=== PATIENT | female | born 1955 | race Caucasian/White ===

== ENCOUNTER 2019-01-11 08:40 | Inpatient (IN) | payer MEDICAID, OTHER ==
[~2019-01-11] VITALS: Ht 162.6 cm; Wt 95.3 kg
[2019-01-11 09:44] LABS: Basophils # (auto) 0.1 uL; Basophils % (auto) 0.8 % (0.0-2.0); Eosinophils # (auto) 0.1 uL; Eosinophils % (auto) 0.6 % (0.0-7.0); Hemoglobin 14.3 g/dL (12.2-16.2); Lymphocytes # (auto) 1.1 uL; Lymphocytes % (auto) 11.1 % (10.0-50.0); Mean Corpuscular Hemoglobin 30.6 pg (28.0-32.0); Mean Corpuscular Hgb Conc. 34.9 g/dL (32.0-36.0); Mean Corpuscular Volume 87.5 fL (80.0-100.0); Monocytes # (auto) 0.3 uL; Monocytes % (auto) 2.9 % (0.0-12.0); Neutrophils # (auto) 8.6 uL; Neutrophils % (auto) 84.6 % (37.0-80.0); Nucleated Red Blood Cells % 0.1 %; Platelet Count (auto) 246 10^3/uL (140-450); Red Blood Cells 4.68 10^6/uL (4.0-5.20); Red Cell Distribution Width 13.1 % (11.8-14.3); White Blood Cell 10.2 10^3/uL (4.4-10.8)
[2019-01-11] MEDS ORDERED: ONDANSETRON HCL 4 MG/2 ML VIAL IV ONE ×2 (09:45→14:00)
[2019-01-11] MEDS ORDERED: KETOROLAC TROMETH 30 MG/ML 1ML VIAL IV ONE ×2 (09:45→13:30)
[2019-01-11 09:56] LABS: Albumin 4.2 g/dL (3.4-5.0); Calcium 8.8 mg/dL (8.5-10.1); Potassium 3.6 mmol/L (3.5-5.1)
[2019-01-11 09:58] LABS: Bilirubin, Total 0.8 mg/dL (0.2-1.0)
[2019-01-11 10:01] LABS: Urine Bacteria FEW /hpf (None Seen); Urine Blood TRACE /uL (Negative); Urine Hyaline Cast FEW /lpf (0 - 2); Urine Mucus FEW (None Seen); Urine Specific Gravity 1.021 (1.001-1.035); Urine WBC 63 /hpf (0 - 5)
[2019-01-11] MEDS ORDERED: SODIUM CHLORIDE 0.9% 1,000 ML IV ONE (13:30)
[2019-01-11] MEDS ORDERED: HYDROmorphone HCL 2 MG/ML VL IV ONE (14:00)
[2019-01-11] MEDS ORDERED: NITROGLYCERIN 0.4 MG SL TAB SL PRN (14:15)
[2019-01-11] MEDS ORDERED: LEVOFLOXACIN 750MG 150 ML IV ONE (14:15)
[2019-01-11] MEDS ORDERED: ACETAMINOPHEN 325 MG TAB PO PRN (14:15)
[2019-01-11] MEDS ORDERED: MORPHINE SULF INJ 2 MG/ML SYRINGE 1ML IV PRN (14:15)
[2019-01-11] MEDS: SODIUM CHLORIDE 0.9% 1,000 ML IV SCH ×2 (14:34→21:57)
--- NOTE | 2019-01-11 14:57 | NUR ---
RECEIVED REPORT FROM YOU IN ER WILL AWAIT PATIENT.
--- NOTE | 2019-01-11 15:20 | NUR ---
RECEIVED PATIENT TO THE FLOOR AWAKE ALERT AND ORIENTED X4 PATIENT AMBULATORY. BED LOCKED IN LOWEST POSITION WITH TWO SIDE RAILS UP AND CALL LIGHT IN REACH. INSTRUCTED THE PATIENT ON THE PLAN OF CARE AND TO CALL IF ANYTHING IS NEEDED.
[2019-01-11] MEDS ORDERED: MANNITOL FTV 25% 12.5 GM/50 ML 50 ML IV ONE ×2 (16:15→17:30)
[2019-01-11] MEDS ORDERED: GABA300C10 PO (16:16)
[2019-01-11] MEDS ORDERED: LISI10TA6 PO (16:16)
[2019-01-11 16:45] VITALS: BP 134/52
[2019-01-11 18:55] LABS: Calcium 8.1 mg/dL (8.5-10.1); Potassium 3.8 mmol/L (3.5-5.1)
[2019-01-11] MEDS: HYDROmorphone HCL 2 MG/ML VL IV PRN (19:03)
--- NOTE | 2019-01-11 19:56 | NUR ---
Hospitalist azar Huynh states she takes Gabapentin 300mg daily at night and would like to continue this medication in the hospital. Addendum: 01/11/19 at 2023 by GREGORIA GRANGER RN Pharmacist was able to change existing order from 1000 to 2200.
[2019-01-11 21:00] VITALS: BP 114/47
[2019-01-11] MEDS: ATORVASTATIN 20 MG TAB PO SCH (21:56)
[2019-01-11] MEDS: GABAPENTIN 300 MG CAP PO SCH (21:56)
[2019-01-11] MEDS: MIRTAZAPINE 30 MG TAB PO SCH (21:57)
[2019-01-12] MEDS: HYDROmorphone HCL 2 MG/ML VL IV PRN ×5 (01:26→22:06)
[2019-01-12] MEDS: PROMETHAZINE HCL 25 MG/ML 1ML IV PRN ×5 (01:35→22:06)
[2019-01-12 04:30] VITALS: BP 114/50
[2019-01-12] MEDS: SODIUM CHLORIDE 0.9% 1,000 ML IV SCH ×3 (05:22→22:07)
[2019-01-12 07:19] LABS: Basophils # (auto) 0 uL; Basophils % (auto) 0.6 % (0.0-2.0); Eosinophils # (auto) 0.1 uL; Eosinophils % (auto) 1.7 % (0.0-7.0); Hematocrit 37.1 % (36.0-46.0); Hemoglobin 12.9 g/dL (12.2-16.2); Lymphocytes # (auto) 1.2 uL; Lymphocytes % (auto) 21.2 % (10.0-50.0); Mean Corpuscular Hemoglobin 30.4 pg (28.0-32.0); Mean Corpuscular Hgb Conc. 34.7 g/dL (32.0-36.0); Mean Corpuscular Volume 87.6 fL (80.0-100.0); Monocytes # (auto) 0.3 uL; Monocytes % (auto) 4.7 % (0.0-12.0); Neutrophils # (auto) 4.1 uL; Neutrophils % (auto) 71.8 % (37.0-80.0); Platelet Count (auto) 223 10^3/uL (140-450); Red Blood Cells 4.24 10^6/uL (4.0-5.20); Red Cell Distribution Width 12.9 % (11.8-14.3); White Blood Cell 5.8 10^3/uL (4.4-10.8)
[2019-01-12 07:32] LABS: BUN/Creatinine Ratio 20.2; Calcium 8.5 mg/dL (8.5-10.1); Potassium 4.2 mmol/L (3.5-5.1)
[2019-01-12 09:00] VITALS: BP 139/64
[2019-01-12] MEDS: LISINOPRIL 10 MG TAB PO SCH (09:14)
[2019-01-12] MEDS: LEVOFLOXACIN 500MG 100 ML IV SCH (09:16)
[2019-01-12 13:00] VITALS: BP 123/56
[2019-01-12] MEDS: HYDROcodone-ACET 5/325MG TAB PO PRN ×2 (13:34→20:52)
[2019-01-12 16:57] VITALS: BP 135/74
--- NOTE | 2019-01-12 20:57 | NUR ---
DR Marcia DELUNA FOR PT'S C/O NAUSEA AND PAIN
[2019-01-12 22:00] VITALS: BP 137/71
[2019-01-12] MEDS: ATORVASTATIN 20 MG TAB PO SCH (22:06)
[2019-01-12] MEDS: GABAPENTIN 300 MG CAP PO SCH (22:06)
[2019-01-12] MEDS: MIRTAZAPINE 30 MG TAB PO SCH (22:06)
--- NOTE | 2019-01-12 23:20 | NUR ---
Continuation Of Care Assumed care of patient from Yovani RN for continuation of care. Patient awake and alert. No S/S of distress/SOB or pain. Bed in lowest locked position, side rails up x2, call light within reach. Instructed on POC and to call for assist PRN, will continue to monitor for changes Q1hr and PRN.
--- NOTE | 2019-01-12 23:20 | NUR ---
report given to Marcela BOCANEGRA
[2019-01-13] MEDS: PROMETHAZINE HCL 25 MG/ML 1ML IV PRN ×3 (05:04→20:11)
[2019-01-13] MEDS: HYDROmorphone HCL 2 MG/ML VL IV PRN ×3 (05:05→20:12)
[2019-01-13 05:40] VITALS: BP 136/62
[2019-01-13] MEDS: SODIUM CHLORIDE 0.9% 1,000 ML IV SCH ×3 (06:02→22:15)
--- NOTE | 2019-01-13 07:16 | NUR ---
Closing Note Patient lying in bed, awake and alert. One stone noted to have passed in strainer. Patient also reporting two episodes of nausea and vomiting despite PRN Phenergan administration, will make dayshift RN aware. No s/s of distress at this time. Bed in lowest locked position, side rails up x2, call light within reach. Care endorsed to dayshift RN.
--- NOTE | 2019-01-13 07:30 | NUR ---
Opening Shift Note Assumed care of patient, awake and alert. No S/S of distress/SOB or pain. Instructed on POC and to call for assist PRN, will continue to monitor for changes Q1hr and PRN.
[2019-01-13 08:00] VITALS: BP 113/59
[2019-01-13] MEDS: LEVOFLOXACIN 500MG 100 ML IV SCH (09:52)
[2019-01-13] MEDS: LISINOPRIL 10 MG TAB PO SCH (09:52)
[2019-01-13] MEDS: HYDROcodone-ACET 5/325MG TAB PO PRN (09:53)
[2019-01-13] MEDS ORDERED: POLYETHYLENE GLYCOL 17 GM PWDR PO PRN (11:30)
[2019-01-13 12:00] VITALS: BP 141/64
--- NOTE | 2019-01-13 12:00 | NUR ---
IV removal IV DC'd with clean sterile technique, catheter fully intact. Pressure dressing applied to site. Patient tolerated well.
[2019-01-13 13:26] LABS: Basophils # (auto) 0 uL; Basophils % (auto) 0.4 % (0.0-2.0); Eosinophils # (auto) 0.2 uL; Eosinophils % (auto) 2.4 % (0.0-7.0); Hematocrit 39.7 % (36.0-46.0); Hemoglobin 13.4 g/dL (12.2-16.2); Lymphocytes # (auto) 1.2 uL; Lymphocytes % (auto) 16.9 % (10.0-50.0); Mean Corpuscular Hemoglobin 30.3 pg (28.0-32.0); Mean Corpuscular Hgb Conc. 33.8 g/dL (32.0-36.0); Mean Corpuscular Volume 89.7 fL (80.0-100.0); Monocytes # (auto) 0.4 uL; Monocytes % (auto) 5.9 % (0.0-12.0); Neutrophils # (auto) 5.2 uL; Neutrophils % (auto) 74.4 % (37.0-80.0); Platelet Count (auto) 237 10^3/uL (140-450); Red Blood Cells 4.43 10^6/uL (4.0-5.20); Red Cell Distribution Width 12.8 % (11.8-14.3)
[2019-01-13 13:41] LABS: Partial Thromboplastin Time 27.3 sec (23.64-32.05)
[2019-01-13 13:47] LABS: Calcium 8.2 mg/dL (8.5-10.1); Potassium 3.8 mmol/L (3.5-5.1)
[2019-01-13 13:49] LABS: BUN/Creatinine Ratio 16.5
[2019-01-13] MEDS: DOCUSATE SOD 100 MG CAP PO SCH ×2 (15:04→22:27)
[2019-01-13 16:53] VITALS: BP 138/61
--- NOTE | 2019-01-13 19:30 | NUR ---
Opening Shift Note Assumed care of patient, awake and alert.Family on bedside. No S/S of distress/SOB or pain. Instructed on POC and to call for assist PRN, will continue to monitor for changes Q1hr and PRN.
[2019-01-13 22:06] VITALS: BP 134/73
[2019-01-13] MEDS: GABAPENTIN 300 MG CAP PO SCH (22:28)
[2019-01-13] MEDS: MIRTAZAPINE 30 MG TAB PO SCH (22:28)
[2019-01-14] VITALS (7 sets, daily range): BP systolic 116–157; BP diastolic 44–71
[2019-01-14] MEDS: PROMETHAZINE HCL 25 MG/ML 1ML IV PRN ×3 (05:48→19:45)
[2019-01-14] MEDS: HYDROmorphone HCL 2 MG/ML VL IV PRN ×3 (05:49→19:44)
[2019-01-14] MEDS: DOCUSATE SOD 100 MG CAP PO SCH ×3 (05:49→22:14)
[2019-01-14 07:17] LABS: Basophils # (auto) 0 uL; Basophils % (auto) 0.6 % (0.0-2.0); Eosinophils # (auto) 0.3 uL; Eosinophils % (auto) 5.7 % (0.0-7.0); Hematocrit 39.1 % (36.0-46.0); Hemoglobin 13.6 g/dL (12.2-16.2); Lymphocytes # (auto) 1.5 uL; Lymphocytes % (auto) 25.4 % (10.0-50.0); Mean Corpuscular Hemoglobin 30.7 pg (28.0-32.0); Mean Corpuscular Hgb Conc. 34.8 g/dL (32.0-36.0); Mean Corpuscular Volume 88.1 fL (80.0-100.0); Monocytes # (auto) 0.3 uL; Monocytes % (auto) 5.6 % (0.0-12.0); Neutrophils # (auto) 3.8 uL; Neutrophils % (auto) 62.7 % (37.0-80.0); Platelet Count (auto) 222 10^3/uL (140-450); Red Blood Cells 4.44 10^6/uL (4.0-5.20); Red Cell Distribution Width 12.7 % (11.8-14.3)
[2019-01-14] MEDS: SODIUM CHLORIDE 0.9% 1,000 ML IV SCH ×3 (07:30→22:15)
[2019-01-14 07:39] LABS: Potassium 3.7 mmol/L (3.5-5.1)
[2019-01-14 07:46] LABS: BUN/Creatinine Ratio 13.8; Calcium 8.6 mg/dL (8.5-10.1); Magnesium 2.1 mg/dL (1.6-2.6)
[2019-01-14] MEDS: LEVOFLOXACIN 500MG 100 ML IV SCH (09:37)
[2019-01-14] MEDS: LISINOPRIL 10 MG TAB PO SCH (09:38)
[2019-01-14] MEDS: GABAPENTIN 300 MG CAP PO SCH (22:14)
[2019-01-14] MEDS: MIRTAZAPINE 30 MG TAB PO SCH (22:14)
[2019-01-15] MEDS: HYDROmorphone HCL 2 MG/ML VL IV PRN ×2 (04:14→10:36)
[2019-01-15] MEDS: PROMETHAZINE HCL 25 MG/ML 1ML IV PRN ×2 (04:15→10:36)
[2019-01-15 05:00] VITALS: BP 149/76
[2019-01-15 07:09] LABS: Basophils # (auto) 0 uL; Basophils % (auto) 0.5 % (0.0-2.0); Eosinophils # (auto) 0.3 uL; Eosinophils % (auto) 6.1 % (0.0-7.0); Hematocrit 39.7 % (36.0-46.0); Hemoglobin 13.9 g/dL (12.2-16.2); Lymphocytes # (auto) 1.4 uL; Lymphocytes % (auto) 25.2 % (10.0-50.0); Mean Corpuscular Hemoglobin 31.2 pg (28.0-32.0); Mean Corpuscular Volume 89.2 fL (80.0-100.0); Monocytes # (auto) 0.3 uL; Monocytes % (auto) 5.7 % (0.0-12.0); Neutrophils # (auto) 3.4 uL; Neutrophils % (auto) 62.5 % (37.0-80.0); Platelet Count (auto) 215 10^3/uL (140-450); Red Blood Cells 4.45 10^6/uL (4.0-5.20); Red Cell Distribution Width 12.8 % (11.8-14.3); White Blood Cell 5.5 10^3/uL (4.4-10.8)
[2019-01-15 07:11] LABS: Potassium 3.6 mmol/L (3.5-5.1)
[2019-01-15] MEDS: DOCUSATE SOD 100 MG CAP PO SCH ×2 (07:12→14:00)
[2019-01-15 07:15] LABS: BUN/Creatinine Ratio 11.5; Calcium 8.4 mg/dL (8.5-10.1)
[2019-01-15 08:00] VITALS: BP 131/70
--- NOTE | 2019-01-15 08:40 | NUR ---
Opening Shift Note Assumed care of patient, awake and alert. No S/S of distress/SOB or pain. Bed is in lowest position with 2x side rails up for safety, and call light is within reach. Instructed on POC and to call for assist PRN, will continue to monitor for changes Q1hr and PRN.
[2019-01-15 09:21] VITALS: BP 131/70
[2019-01-15] MEDS: SODIUM CHLORIDE 0.9% 1,000 ML IV SCH ×2 (10:37→14:15)
[2019-01-15] MEDS: LEVOFLOXACIN 500MG 100 ML IV SCH (10:37)
[2019-01-15] MEDS: LISINOPRIL 10 MG TAB PO SCH (10:44)
[2019-01-15] MEDS ORDERED: ATOR40TA52 PO (11:28)
[2019-01-15] MEDS ORDERED: MIRT30TA PO (11:28)
[2019-01-15 13:21] VITALS: BP 142/68
--- NOTE | 2019-01-15 14:36 | NUR ---
Updated patient on POC per Dr. Alex. Patient verbalized understanding. Patient continues to be NPO per MD's order.
--- NOTE | 2019-01-15 15:50 | NUR ---
IV started 22g IV started with clean technique to the LFA on first attempt by SAHRA Young. Patient tolerated well. IV secured. IV education provided. Patient verbalized understanding.
--- NOTE | 2019-01-15 15:53 | NUR ---
Patient off unit to PACU via hospital bed. Respirations even and unlabored, no distress noted.
--- NOTE | 2019-01-15 16:00 | NUR ---
RE: Intervention patient off unit at scheduled procedure. Addendum: 01/15/19 at 1633 by Beverley Burkett RN Amended: Links added.
[2019-01-15] MEDS ORDERED: MIDAZOLAM HCL 1MG/1ML-2 ML VIAL ONE (16:51)
[2019-01-15] MEDS ORDERED: PROPOFOL 10 MG/ML 20 ML IV ONE ×2 (16:51→17:35)
[2019-01-15] MEDS ORDERED: SODIUM CHLORIDE LOCK 10 ML ONE (16:51)
[2019-01-15] MEDS ORDERED: ONDANSETRON HCL 4 MG/2 ML VIAL ONE (16:51)
[2019-01-15] MEDS ORDERED: fentaNYL CITRATE 100 MCG/2 ML VL ONE (16:51)
[2019-01-15] MEDS ORDERED: LEVO500T21 PO (17:38)
[2019-01-15] MEDS ORDERED: TAM04C PO (17:38)
[2019-01-15] MEDS ORDERED: HYDR-4833 PO (17:38)
--- NOTE | 2019-01-15 17:54 | NUR ---
RE: Intervention Patient off unit at scheduled procedure. Addendum: 01/15/19 at 1824 by Beverley Burkett RN Amended: Links added.
--- NOTE | 2019-01-15 18:17 | NUR ---
D/C Planning Per consult for home health safety evaluation. Contacted and [facility]ed [facility] records [facility] unable to accept Pt. Per Hannah from [facility]:) Fax:) Pt has been accepted and service to start within 48hrs upon d/c day. Contacted [facility]:) Fax:) faxed medical records requesting for authorization to be given to [facility]. Followed up call to [facility] spoke to Hannah. Hannah advised me authorization was received. Addendum: 01/15/19 at 1819 by FABIANO LONDONO Amended: Links added.
[2019-01-15] MEDS ORDERED: MORPHINE SULFATE 4 MG/ML SYR/VIAL IV PRN (18:45)
[2019-01-15] MEDS ORDERED: METOCLOPRAMIDE HCL 5MG/ml INJ 2ml VIAL IV PRN (18:45)
[2019-01-15] MEDS ORDERED: KETOROLAC TROMETH 30 MG/ML 1ML VIAL IV ONE (18:45)
[2019-01-15] MEDS ORDERED: fentaNYL CITRATE 100 MCG/2 ML VL IV PRN (18:45)
[2019-01-15] MEDS ORDERED: HYDROmorphone HCL 2 MG/ML VL IV PRN (18:45)
--- NOTE | 2019-01-15 18:51 | NUR ---
Patient returned to unit via hospital bed with even and unlabored respirations, no distress noted. Fall precautions in place with bed in lowest locked position with call light within reach. Patient aware of discharge plan. Patient has been clear by Dr. Isai York, CIRCUIT DESIGNER.
--- NOTE | 2019-01-15 18:57 | NUR ---
Family called for update Patient's son, Terry, called for an update. Password obtained. Update given. Terry verbalized understanding of discharge plan.
--- NOTE | 2019-01-15 19:05 | NUR ---
Telemonitor returned to telemonitor tech.
[2019-01-15 19:20] VITALS: BP 122/46
--- NOTE | 2019-01-15 19:28 | NUR ---
Care endorsed to SAHRA James.
[2019-01-15 19:47] VITALS: BP 122/46
--- NOTE | 2019-01-15 21:20 | NUR ---
Discharge instructions given as ordered. Encourage to follow up with PMD as instructed. All questions and concerns addressed. Patient verbalized understanding. Medication reconciliation form completed and copy given to patient. Home medications held in Pharmacy returned to patient, and needed vaccines given. IV removed with catheter intact, pressure dressing applied. Telemetry unit returned to [facility]. Patient taken to vehicle via wheelchair with all personal belongings, accompanied by staff and family member. No distress noted at time of departure.
== END 2019-01-15 21:20 | disposition home health service (06) | DRG 469 ==
LOC: ER 08:40 → TELE 08:41 → TELE-WESTW 15:19
PROVIDERS: ADMIT Internal Medicine; ATTEND Internal Medicine
PROC: 0TF7XZZ Fragmentation in Left Ureter, External Approach (ICD-10-PCS; 2019-01-15)
PROC: 0T778DZ Dilation of Left Ureter with Intraluminal Device, Via Natural or Artificial Opening Endoscopic (ICD-10-PCS; principal; 2019-01-15 16:44)
DX: N17.9 Acute kidney failure, unspecified (principal); G62.9 Polyneuropathy, unspecified; N13.6 Pyonephrosis; I10 Essential (primary) hypertension; E78.5 Hyperlipidemia, unspecified; F32.9 Major depressive disorder, single episode, unspecified; K57.30 Diverticulosis of large intestine without perforation or abscess without bleeding; Z87.442 Personal history of urinary calculi; Z88.5 Allergy status to narcotic agent; Z88.8 Allergy status to other drugs, medicaments and biological substances; Z90.49 Acquired absence of other specified parts of digestive tract
CPT/HCPCS: 36415; 71045; 74018; 74176; 80048; 80053; 81001; 83735; 85025; 85610; 85730; 87040; 87086; 93005; 96361; 96365; 96375; 96376; G0378; J1885; J1956; J2250; J2405; J2704

== ENCOUNTER 2019-02-12 09:49 | Emergency (ER) | payer MEDICAID ==
[~2019-02-12] VITALS: Ht 162.6 cm; Wt 90.3 kg
[~2019-02-12 09:49] MED LIST: ATOR40TA52 PO; GABA300C10 PO; HYDR-4833 PO; LEVO500T21 PO; LISI10TA6 PO; MIRT30TA PO; TAM04C PO
[2019-02-12 10:06] VITALS: BP 156/81
== END 2019-02-12 11:28 | disposition home or self-care (01) ==
LOC: ER 09:49
DX: R31.9 Hematuria, unspecified (principal); R30.0 Dysuria; I10 Essential (primary) hypertension; Z76.0 Encounter for issue of repeat prescription; Z87.442 Personal history of urinary calculi; Z98.51 Tubal ligation status; Z88.6 Allergy status to analgesic agent; Z79.899 Other long term (current) drug therapy

== ENCOUNTER 2019-02-24 23:43 | Emergency (ER) | payer MEDICAID ==
[~2019-02-24] VITALS: Ht 163.8 cm; Wt 89.6 kg
[2019-02-25 01:50] LABS: Basophils # (auto) 0.1 uL; Basophils % (auto) 0.8 % (0.0-2.0); Eosinophils # (auto) 0.2 uL; Eosinophils % (auto) 3.7 % (0.0-7.0); Hematocrit 40.2 % (36.0-46.0); Hemoglobin 13.8 g/dL (12.2-16.2); Lymphocytes # (auto) 1.5 uL; Lymphocytes % (auto) 22.5 % (10.0-50.0); Mean Corpuscular Hemoglobin 30.4 pg (28.0-32.0); Mean Corpuscular Hgb Conc. 34.4 g/dL (32.0-36.0); Mean Corpuscular Volume 88.4 fL (80.0-100.0); Monocytes # (auto) 0.4 uL; Monocytes % (auto) 6.7 % (0.0-12.0); Neutrophils # (auto) 4.4 uL; Neutrophils % (auto) 66.3 % (37.0-80.0); Platelet Count (auto) 271 10^3/uL (140-450); Red Blood Cells 4.55 10^6/uL (4.0-5.20); Red Cell Distribution Width 12.8 % (11.8-14.3); White Blood Cell 6.7 10^3/uL (4.4-10.8)
[2019-02-25 01:56] LABS: Urine Bacteria NONE SEEN /hpf (None Seen); Urine Blood 3+ /uL (Negative); Urine Mucus FEW (None Seen); Urine Specific Gravity 1.021 (1.001-1.035); Urine WBC 254 /hpf (0 - 5)
[2019-02-25 02:01] LABS: Albumin 3.7 g/dL (3.4-5.0); Calcium 8.5 mg/dL (8.5-10.1); Potassium 3.8 mmol/L (3.5-5.1)
[2019-02-25 02:04] LABS: BUN/Creatinine Ratio 21.2
[2019-02-25 02:07] LABS: Bilirubin, Total 0.4 mg/dL (0.2-1.0)
[2019-02-25] MEDS ORDERED: SODIUM CHLORIDE 0.9% 1,000 ML IV ONE (02:15)
[2019-02-25] MEDS ORDERED: ONDANSETRON HCL 4 MG/2 ML VIAL IV ONE (02:15)
[2019-02-25] MEDS ORDERED: HYDROmorphone HCL 2 MG/ML VL IV ONE (02:15)
[2019-02-25 06:00] VITALS: BP 117/46
== END 2019-02-25 07:25 | disposition home or self-care (01) ==
LOC: ER 23:43
DX: N20.0 Calculus of kidney (principal); N39.0 Urinary tract infection, site not specified; I10 Essential (primary) hypertension; Z79.899 Other long term (current) drug therapy; Z88.5 Allergy status to narcotic agent; Z88.8 Allergy status to other drugs, medicaments and biological substances
CPT/HCPCS: 36415; 74176; 80053; 81001; 83605; 85025; 96374; 96375; 99284; J1170; J2405; J7030

== ENCOUNTER 2019-03-11 18:31 | Emergency (ER) | payer MEDICAID ==
[~2019-03-11] VITALS: Ht 162.6 cm; Wt 87.5 kg
[2019-03-11 20:01] VITALS: BP 121/37
== END 2019-03-11 20:13 | disposition home or self-care (01) ==
LOC: ER 18:35
DX: R22.41 Localized swelling, mass and lump, right lower limb (principal); I10 Essential (primary) hypertension; Z90.49 Acquired absence of other specified parts of digestive tract; Z88.5 Allergy status to narcotic agent; Z88.8 Allergy status to other drugs, medicaments and biological substances; Z79.2 Long term (current) use of antibiotics; Z79.899 Other long term (current) drug therapy
CPT/HCPCS: 93971

== ENCOUNTER → 2019-08-29 | Emergency (ER) | payer MEDICAID ==
[~2019-08-29] VITALS: Ht 162.6 cm; Wt 86.2 kg
[2019-08-29 12:50] VITALS: BP 138/51
== END | disposition home or self-care (01) ==
LOC: ER 12:34
DX: S93.401A Sprain of unspecified ligament of right ankle, initial encounter (principal); Z88.5 Allergy status to narcotic agent; Z88.8 Allergy status to other drugs, medicaments and biological substances; X58.XXXA Exposure to other specified factors, initial encounter; Y93.89 Activity, other specified; Y92.89 Other specified places as the place of occurrence of the external cause; Y99.8 Other external cause status
CPT/HCPCS: 93971

== ENCOUNTER 2019-11-20 06:33 | Inpatient (IN) | payer MEDICAID ==
[~2019-11-20] VITALS: Ht 163.8 cm; Wt 108.0 kg
[~2019-11-20 06:33] MED LIST changes: +LISI-648 PO; -LISI10TA6 PO
[2019-11-20 07:59] LABS: Basophils # (auto) 0.1 10 ^3/uL (0-0.2); Basophils % (auto) 0.7 % (0.0-2.0); Eosinophils # (auto) 0.1 10 ^3/uL (0-0.8); Eosinophils % (auto) 1.1 % (0.0-7.0); Hematocrit 44.1 % (36.0-46.0); Hemoglobin 14.8 g/dL (12.2-16.2); Lymphocytes # (auto) 1.1 10 ^3/uL (0.4-5.4); Lymphocytes % (auto) 11.9 % (10.0-50.0); Mean Corpuscular Hemoglobin 29.5 pg (28.0-32.0); Mean Corpuscular Hgb Conc. 33.6 g/dL (32.0-36.0); Mean Corpuscular Volume 87.8 fL (80.0-100.0); Monocytes # (auto) 0.4 10 ^3/uL (0-1.3); Monocytes % (auto) 4.1 % (0.0-12.0); Neutrophils # (auto) 7.6 10 ^3/uL (1.6-8.6); Neutrophils % (auto) 82.2 % (37.0-80.0); Nucleated Red Blood Cells % 0.1 %; Platelet Count (auto) 260 10^3/uL (140-450); Red Blood Cells 5.03 10^6/uL (4.0-5.20); Red Cell Distribution Width 12.8 % (11.8-14.3); White Blood Cell 9.2 10^3/uL (4.4-10.8)
[2019-11-20 08:17] LABS: Albumin 3.9 g/dL (3.4-5.0); BUN/Creatinine Ratio 19.6; Calcium 8.9 mg/dL (8.5-10.1); Potassium 4.3 mmol/L (3.5-5.1)
[2019-11-20 08:20] LABS: Bilirubin, Total 0.9 mg/dL (0.2-1.0); Total Protein 7.2 g/dL (6.4-8.2)
[2019-11-20] MEDS ORDERED: ONDANSETRON HCL 4 MG/2 ML VIAL IV ONE (08:30)
[2019-11-20] MEDS ORDERED: HYDROmorphone HCL 2 MG/ML VL IV ONE (08:30)
[2019-11-20] MEDS ORDERED: TAMSULOSIN HYDROCHLORIDE 0.4 MG CAP PO ONE (08:30)
[2019-11-20] MEDS ORDERED: HYDROmorphone HCL 2 MG/ML VL ONE (08:32)
[2019-11-20] MEDS ORDERED: ONDANSETRON HCL 4 MG/2 ML VIAL ONE (08:33)
[2019-11-20 08:41] LABS: Urine Bacteria FEW /hpf (None Seen); Urine Blood 3+ /uL (Negative); Urine Mucus FEW (None Seen); Urine Specific Gravity 1.022 (1.001-1.035); Urine WBC 25 /hpf (0 - 5)
[2019-11-20] MEDS ORDERED: SODIUM CHLORIDE 0.9% 1,000 ML IV ONE (09:00)
[2019-11-20] MEDS ORDERED: cefTRIAXone 1GM/50ML D5W 50 ML IV ONE (09:00)
[2019-11-20] MEDS ORDERED: NITROGLYCERIN 0.4 MG SL TAB SL PRN (10:15)
[2019-11-20] MEDS ORDERED: hydrALAZINE HCL 20 MG/ML VL IV PRN (10:15)
[2019-11-20] MEDS ORDERED: MORPHINE SULF INJ 2 MG/ML SYRINGE 1ML IV PRN (10:15)
[2019-11-20] MEDS ORDERED: ACETAMINOPHEN 325 MG TAB PO PRN (10:15)
[2019-11-20] MEDS: SODIUM CHLORIDE 0.9% 1,000 ML IV SCH ×2 (10:38→18:43)
[2019-11-20] MEDS: PROMETHAZINE HCL 25 MG/ML 1ML IV PRN ×4 (12:03→22:14)
[2019-11-20] MEDS: HYDROmorphone HCL 2 MG/ML VL IV PRN ×3 (12:03→21:12)
[2019-11-20] MEDS ORDERED: TAM04C PO (12:06)
[2019-11-20] MEDS ORDERED: MIRT1TAB40 PO (12:06)
[2019-11-20] MEDS ORDERED: DICL1GEL50 TD (12:07)
[2019-11-20] MEDS ORDERED: AZEL0.054 EACHEYE (12:07)
--- NOTE | 2019-11-20 12:25 | NUR ---
PATIENT ARRIVED TO PACU TELE HOLD FROM ER IN WHEELCHAIR, AMBULATED WITHOUT INCIDENT TO [facility] IN PACU BAY 6, ORIENTATED TO SURROUNDINGS, VERBALIZED UNDERSTANDING. TELE READING SINUS JAYESH AT 53 BPM, PATIENT IS A/0X3. WILL CONTINUE TO MONITOR.
[2019-11-20 12:30] VITALS: BP 119/57
[2019-11-20] MEDS ORDERED: GABAPENTIN 300 MG CAP PO SCH (14:00)
--- NOTE | 2019-11-20 14:18 | NUR ---
DR. Marcia PEREZ TO THE BEDSIDE.
[2019-11-20] MEDS: HYDROcodone-ACET 5/325MG TAB PO PRN (14:50)
--- NOTE | 2019-11-20 15:09 | NUR ---
LOFT WORKER HEAD TAMMY TO THE BEDSIDE, DISCUSSED POC WITH PATIENT
[2019-11-20 16:26] VITALS: BP 133/54
--- NOTE | 2019-11-20 16:34 | NUR ---
ROOM ASSIGMENT RECEIVED, REPORT PROVIDED IN DETAIL TO APRYL BOCANEGRA.
--- NOTE | 2019-11-20 16:50 | NUR ---
PATIENT TRANSPORTED VIA GURNEY TO ROOM 206, AMBULATED TO BED FROM DOOR WAY WITHOUT INCIDENT. ORIENTATED TO SURROUNDINGS AND CALL LIGHT. BED LOW, CALL WELL WITHIN REACH. APRYL BOCANEGRA AWARE.
--- NOTE | 2019-11-20 16:54 | NUR ---
Telemetry admit from OR Patient oriented to Cathie Hutchinson primary RN, unit, room, bed, and unit policies regarding patient care and visiting hours. Patient now on continuous telemetry monitoring, tele box # 45 and telemetry reading on arrival to unit is SR63. Patient placed on bedside oxygen, weighed by bedscale and encouraged to call if they need something. All questions and concerns addressed, patient verbalized understanding.IV to left AC 20g, site patent and benign, NS @ 125 as ordered, Call light within reach, cont care
--- NOTE | 2019-11-20 17:30 | NUR ---
PT INFORMED OF URINE COLLECTION TO STRAIN ON EACH VOID PT VERBALIZED UNDERSTANDING, CONT CARE
[2019-11-20] MEDS: TAMSULOSIN HYDROCHLORIDE 0.4 MG CAP PO SCH (18:14)
--- NOTE | 2019-11-20 19:12 | NUR ---
Opening Shift Note Assumed care of patient. Patient is awake, alert, and oriented X 4. No S/S of respiratory distress noted or reported. Patient reports R flank pain 7 out of 10, will be addressed per Dr's order. Bed in lowest locked position, side rails up x 2, call light is within reach. Tele box matches to monitoring tech. Leads applied correctly. Patient instructed on POC and to call for assistance PRN. Will continue to monitor for changes Q1hr and PRN.
[2019-11-20 20:00] VITALS: BP 122/50
[2019-11-20] MEDS: GABAPENTIN 300 MG CAP PO SCH (22:10)
[2019-11-20] MEDS: ATORVASTATIN 20 MG TAB PO SCH (22:10)
[2019-11-20 22:11] VITALS: BP 122/50
[2019-11-20 22:57] LABS: INR 0.98 (0.9-1.15)
[2019-11-21] MEDS: SODIUM CHLORIDE 0.9% 1,000 ML IV SCH ×3 (02:54→18:40)
[2019-11-21] MEDS: PROMETHAZINE HCL 25 MG/ML 1ML IV PRN ×3 (03:10→21:00)
[2019-11-21 05:07] VITALS: BP 132/54
--- NOTE | 2019-11-21 08:00 | NUR ---
OPENING SHIFT NOTE ASSUMED CARE OF PATIENT AWAKE AND ALERT. NO S/S OF DISTRESS NOTED OR COMPLAINTS OF PAIN. PATIENT UPDATED ON POC FOR THE DAY AND ALL QUESTIONS ANSWERED. BED IS IN LOWEST, LOCKED POSITION WITH SIDE RAILS UP X2 AND CALL LIGHT WITHIN REACH. WILL CONTINUE TO MONITOR Q1H AND PRN.
[2019-11-21 09:00] VITALS: BP 128/66
--- NOTE | 2019-11-21 09:08 | NUR ---
RADIOLOGY RECEIVED CALL FROM RADIOLOGY NURSE STATING THAT THE SOONEST POSSIBLE DATE THE RIGHT PERCUTANEOUS NEPHROSTOMY CAN BE PLACED IS TuesdayNov AT 0900. PAGE OUT TO DR PEREZ TO NOTIFY AND OBTAIN DIET ORDER.
[2019-11-21] MEDS: LISINOPRIL 10 MG TAB PO SCH (10:01)
[2019-11-21] MEDS: cefTRIAXone 1GM/50ML D5W 50 ML IV SCH (10:01)
--- NOTE | 2019-11-21 10:24 | NUR ---
NEPHROSTOMY TUBE PLACEMENT RECEIVED CALL FROM CELINE ROBERTS REGARDING PLACEMENT OF RIGHT NEPHROSTOMY TUBE. PER CELINE THE RADIOLOGIST WILL PLACE THE TUBE AFTER THE CURRENT PROCEDURE HE'S IN. PATIENT MADE AWARE TO REMAIN NPO.
[2019-11-21 12:45] VITALS: BP 118/55
[2019-11-21] MEDS ORDERED: fentaNYL CITRATE 100 MCG/2 ML VL ONE (13:58)
[2019-11-21] MEDS ORDERED: MIDAZOLAM HCL 1MG/1ML-2 ML VIAL ONE (13:59)
[2019-11-21] MEDS ORDERED: LIDOCAINE 2%HCL (LOCAL ANESTH.) INJ 20ML MDV ONE (14:00)
[2019-11-21] MEDS ORDERED: IOHEXOL 350 MG/ML 100ML IJ ONE (14:00)
[2019-11-21] MEDS ORDERED: SODIUM CHLORIDE 0.9% 1,000 ML IV SCH (15:41)
--- NOTE | 2019-11-21 15:41 | NUR ---
Assessment Patient is a 64-year-old female who is alert and oriented. Prior to admission patient lived home with family and functioned independently. Per patient she can care for her own ADLs. Per patient she does not have any medical equipment or home oxygen. Per patient she will return home to her prior living arrangement post discharge and family will transport her home. Advised patient there is a social service consult for home health nephrostomy tube care and supplies. Informed patient clinical information will be faxed to a contracted agency with health plan. Informed patient she has the right to participate in all discharge planning. Patient verbalized understanding and agreed to discharge plan. Faxed clinical information to [facility]. Per Sandra with [facility] [phone] patient has been accepted and service to start within 24-48hrs upon d/c day. Faxed clinical information to [facility] requesting authorization for home health. Addendum: 11/21/19 at 1542 by FABIANO WHITE Amended: Links added.
[2019-11-21] MEDS ORDERED: ONDANSETRON HCL 4 MG/2 ML VIAL IV PRN (15:45)
[2019-11-21] MEDS: HYDROmorphone HCL 2 MG/ML VL IV PRN ×2 (16:24→21:00)
--- NOTE | 2019-11-21 16:27 | NUR ---
BACK FROM PUBLIC HEALTH PHYSICIAN PATIENT WAS BROUGHT BACK TO THE ROOM AFTER REPORT RECEIVED FROM PUBLIC HEALTH PHYSICIAN. RIGHT 8.5 PASHTO NEPHROSTOMY TUBE PLACED. PATIENT TOLERATED WELL. WILL CONTINUE CARE.
[2019-11-21 17:01] VITALS: BP 134/58
[2019-11-21] MEDS: TAMSULOSIN HYDROCHLORIDE 0.4 MG CAP PO SCH (17:44)
[2019-11-21] MEDS: HYDROcodone-ACET 5/325MG TAB PO PRN (19:20)
[2019-11-21] MEDS: GABAPENTIN 300 MG CAP PO SCH (21:08)
[2019-11-21] MEDS: ATORVASTATIN 20 MG TAB PO SCH (21:09)
[2019-11-21 22:00] VITALS: BP 125/59
[2019-11-21] MEDS: SODIUM CHLOR 0.9% PF (SALINE LOCK) 10ML VIAL/SYR IV SCH (22:00)
[2019-11-22] MEDS: HYDROmorphone HCL 2 MG/ML VL IV PRN ×4 (01:34→21:18)
[2019-11-22] MEDS: PROMETHAZINE HCL 25 MG/ML 1ML IV PRN ×4 (01:34→21:19)
[2019-11-22] MEDS: SODIUM CHLORIDE 0.9% 1,000 ML IV SCH ×3 (02:24→17:48)
[2019-11-22 05:00] VITALS: BP 128/52
[2019-11-22 05:53] LABS: Basophils # (auto) 0 10 ^3/uL (0-0.2); Basophils % (auto) 0.4 % (0.0-2.0); Eosinophils # (auto) 0.1 10 ^3/uL (0-0.8); Eosinophils % (auto) 1.4 % (0.0-7.0); Hemoglobin 12.5 g/dL (12.2-16.2); Lymphocytes # (auto) 1.1 10 ^3/uL (0.4-5.4); Lymphocytes % (auto) 22.3 % (10.0-50.0); Mean Corpuscular Hemoglobin 30.3 pg (28.0-32.0); Mean Corpuscular Hgb Conc. 33.8 g/dL (32.0-36.0); Mean Corpuscular Volume 89.5 fL (80.0-100.0); Monocytes # (auto) 0.4 10 ^3/uL (0-1.3); Monocytes % (auto) 7.3 % (0.0-12.0); Neutrophils # (auto) 3.5 10 ^3/uL (1.6-8.6); Neutrophils % (auto) 68.6 % (37.0-80.0); Nucleated Red Blood Cells % 0.2 %; Platelet Count (auto) 186 10^3/uL (140-450); Red Blood Cells 4.14 10^6/uL (4.0-5.20); Red Cell Distribution Width 12.8 % (11.8-14.3); White Blood Cell 5.1 10^3/uL (4.4-10.8)
[2019-11-22] MEDS: SODIUM CHLOR 0.9% PF (SALINE LOCK) 10ML VIAL/SYR IV SCH ×3 (06:01→21:20)
[2019-11-22 06:11] LABS: Potassium 3.8 mmol/L (3.5-5.1)
[2019-11-22 06:19] LABS: Albumin 3.2 g/dL (3.4-5.0); BUN/Creatinine Ratio 14.1; Bilirubin, Total 0.7 mg/dL (0.2-1.0); Total Protein 5.7 g/dL (6.4-8.2)
[2019-11-22 06:30] LABS: INR 0.98 (0.9-1.15); Partial Thromboplastin Time 27.3 sec (23.0-31.2)
--- NOTE | 2019-11-22 06:43 | NUR ---
PREOP CALLED PATIENT BROUGHT DOWN FOR PROCEDURE. WILL INFORM DAYSHIFT RN.
[2019-11-22] MEDS ORDERED: ROCURONIUM 10MG/ML 10ML VIAL IV ONE (07:09)
[2019-11-22] MEDS ORDERED: HYDROmorphone HCL 2 MG/ML VL ONE (07:09)
[2019-11-22] MEDS ORDERED: KETOROLAC TROMETH 30 MG/ML 1ML VIAL ONE (07:09)
[2019-11-22] MEDS ORDERED: PROPOFOL 10 MG/ML 20 ML IV ONE (07:09)
[2019-11-22] MEDS ORDERED: DexAMETHasone SOD PHOS 10MG/1ML VIAL INJ ONE (07:09)
[2019-11-22] MEDS ORDERED: MIDAZOLAM HCL 1MG/1ML-2 ML VIAL ONE (07:09)
[2019-11-22] MEDS ORDERED: ONDANSETRON HCL 4 MG/2 ML VIAL ONE (07:09)
[2019-11-22] MEDS ORDERED: fentaNYL CITRATE 100 MCG/2 ML VL ONE (07:09)
[2019-11-22] MEDS ORDERED: GLYCOPYRROLATE 0.2 MG/ML 1ML VIAL ONE ×2 (07:09→08:17)
[2019-11-22] MEDS ORDERED: LIDOCAINE 2% (LOCAL ANESTH.) PF 5ml SDV ONE (07:09)
[2019-11-22] MEDS ORDERED: IOHEXOL 300 MG/ML 100ML BOTTLE IJ ONE ×2 (07:19→13:47)
[2019-11-22] MEDS: CIPROFLOXACIN 400MG/200ML 200 ML IV ONE ×2 (07:32→07:33)
--- NOTE | 2019-11-22 08:00 | NUR ---
OPENING SHIFT NOTE ASSUMED CARE OF PATIENT. PATIENT IS CURRENTLY DOWN FOR A PROCEDURE.
[2019-11-22] MEDS ORDERED: NEOSTIGMINE 1 MG/ML INJ (10mg/10ML VIAL) ONE (08:17)
[2019-11-22] MEDS ORDERED: HYDROmorphone HCL 2 MG/ML VL IV PRN (09:00)
[2019-11-22] MEDS ORDERED: ACCU-CHEK COMFORT CURVE STRIP VI ONE (09:00)
[2019-11-22] MEDS ORDERED: ONDANSETRON HCL 4 MG/2 ML VIAL IV PRN (09:00)
[2019-11-22] MEDS: LISINOPRIL 10 MG TAB PO SCH (10:00)
[2019-11-22] MEDS: cefTRIAXone 1GM/50ML D5W 50 ML IV SCH (10:44)
[2019-11-22 12:38] VITALS: BP 126/60
--- NOTE | 2019-11-22 15:36 | NUR ---
D/C Planning Regarding home health for nephrostomy tube care (education) no supplies needed. Faxed updated order to [facility].
[2019-11-22 16:57] VITALS: BP 131/60
[2019-11-22] MEDS: TAMSULOSIN HYDROCHLORIDE 0.4 MG CAP PO SCH (17:48)
--- NOTE | 2019-11-22 19:10 | NUR ---
Opening Shift Note Assumed care of patient, awake and alert. No S/S of distress/SOB or pain. Safety measures in place bed in lowest position, side rails up x2, and call light within reach. Instructed on POC and to call for assist PRN, will continue to monitor for changes Q1hr and PRN.
[2019-11-22] MEDS: ATORVASTATIN 20 MG TAB PO SCH (21:19)
[2019-11-22] MEDS: GABAPENTIN 300 MG CAP PO SCH (21:19)
[2019-11-22 22:12] VITALS: BP 118/52
--- NOTE | 2019-11-23 00:30 | NUR ---
IV discontinued with clean sterile technique, catheter fully intact. Pressure dressing applied to site. Patient tolerated well. New IV started after 2 attempts. 22g Left forearm. Patient tolerated well. NS running at 125mL. Will continue to monitor.
--- NOTE | 2019-11-23 00:35 | NUR ---
DRAINED PATIENTS TAVARES, 675 mL. HEMATURIA NOTED. URINE WILMER IN COLOR. URINE STRAINED. IMMEASURABLE SPECS OF SEDIMENT SEEN IN STRAINER.
[2019-11-23] MEDS: PROMETHAZINE HCL 25 MG/ML 1ML IV PRN ×2 (04:48→09:17)
[2019-11-23] MEDS: SODIUM CHLORIDE 0.9% 1,000 ML IV SCH (04:49)
[2019-11-23] MEDS: HYDROmorphone HCL 2 MG/ML VL IV PRN ×2 (04:49→09:11)
[2019-11-23 05:15] VITALS: BP 115/50
[2019-11-23] MEDS: SODIUM CHLOR 0.9% PF (SALINE LOCK) 10ML VIAL/SYR IV SCH ×2 (06:06→16:02)
--- NOTE | 2019-11-23 06:30 | NUR ---
Sridevi VAZ'randal per doctors orders, 250 mls drained. Sediment found in strainer. Urine dark leia, patient instructed to inform day shift RN when she voids. Signed: 11/23/19 at 06 by OSIRIS CORTEZ <Co-Signature Required> Co-Signed: 11/23/19 at 0638 by ABDULAZIZ PEREZ RN RN
[2019-11-23 08:28] VITALS: BP 115/52
[2019-11-23] MEDS: cefTRIAXone 1GM/50ML D5W 50 ML IV SCH (08:56)
[2019-11-23] MEDS: LISINOPRIL 10 MG TAB PO SCH (08:57)
--- NOTE | 2019-11-23 10:36 | NUR ---
PHONED DR. PEREZ FOR CHANGE IN PATIENT CONDITION. AWAITING RETURN PHONE CALL.
[2019-11-23] MEDS: HYDROcodone-ACET 5/325MG TAB PO PRN (10:53)
--- NOTE | 2019-11-23 10:54 | NUR ---
PATIENT REQUESTING PAIN MEDICATION. IV PAIN MEDICATION WAS GIVEN FOR 12/26; PATIENT IS NOW REQUESTING NORCO FOR PAIN. MEDICATION GIVEN PER EMAR.
--- NOTE | 2019-11-23 11:29 | NUR ---
ss consult Per consult patient requesting advanced directive. Patient has been provided with advanced directive. Addendum: 11/23/19 at 1130 by Lacie Menezes Amended: Links added.
--- NOTE | 2019-11-23 11:36 | NUR ---
Nutrition Assessment Note please see attached link for complete assessment Est Energy needs IBW 54 [id number] kcals (25-30 kcal/kgIBW), Est Protein needs: 54-64 gms/day (1.0-1.2 gm/kgIBW). Will reassess per dry body wt. Addendum: 11/23/19 at [address] Amended: Links added.
[2019-11-23] MEDS ORDERED: FUROSEMIDE 20 MG/2 ML VIAL IV ONE (12:15)
--- NOTE | 2019-11-23 12:30 | NUR ---
DR. PEREZ PHONED BACK; NEW ORDERS RECEIVED FOR VENOUS STUDY, LASIX AND DC IV FLUIDS.
[2019-11-23 13:00] VITALS: BP 118/50
--- NOTE | 2019-11-23 13:02 | NUR ---
CALLED DR. JACOBSON PER REQUEST OF Wendi PEREZ. LEFT MESSAGE AND AWAITING RETURN PHONE CALL.
[2019-11-23] MEDS ORDERED: TAM04C PO (15:46)
[2019-11-23] MEDS ORDERED: LEVO500T21 PO (15:46)
[2019-11-23 16:23] VITALS: BP 118/50
[2019-11-23] MEDS: TAMSULOSIN HYDROCHLORIDE 0.4 MG CAP PO SCH (16:37)
[2019-11-23] MEDS ORDERED: HYDROcodone-ACET 10/325MG TAB PO ONE (16:45)
--- NOTE | 2019-11-23 17:34 | NUR ---
PATIENT DISCHARGED HOME. PATIENT EDUCATION WAS GIVEN ON MEDICATION TO CONTINUE/DISCONTINUE, PRESCRIPTIONS, ACTIVITY, DIET AND FOLLOW UP. PATIENT WAS INSTRUCTED THAT IF SHE CANNOT VOID, HAS S/S OF INFECTION, ANY SOB, CP OR WORSENING OF ANY SYMPTOMS, SHE SHOULD RETURN TO EMERGENCY ROOM PATIENT IS AWARE SHE SHOULD CALL TUESDAY FOR AN APPT W/ DR. JACOBSON AND DR. FRANCO. PATIENT VERBALIZED THAT SHE UNDERSTANDS ALL INSTRUCTIONS THEY WERE GIVEN. PATIENT VS ARE WNL. IV WAS REMOVED, TIP INTACT AND DRY DRESSING PLACED WITH NO OVERT S/S OF BLEEDING/PHLEBITIS. TELE REMOVED AND SENT BACK. HERNAN WHEELED THE PATIENT OUT TO THE LOBBY WHERE HER DAUGHTER WILL MEET HER.
[2019-11-24] MEDS ORDERED: LEVO500T21 PO (17:29)
[2019-11-24] MEDS ORDERED: HYDR-4833 PO (17:52)
== END 2019-11-23 17:30 | disposition home health service (06) | DRG 446 ==
LOC: ER 06:33 → TELE 06:34 → TELE-CENTR 17:31
PROVIDERS: ADMIT Internal Medicine; ATTEND Internal Medicine
PROC: 0T9030Z Drainage of Right Kidney with Drainage Device, Percutaneous Approach (ICD-10-PCS; 2019-11-21)
PROC: BT1D1ZZ Fluoroscopy of Right Kidney, Ureter and Bladder using Low Osmolar Contrast (ICD-10-PCS; 2019-11-21)
PROC: 0TC68ZZ Extirpation of Matter from Right Ureter, Via Natural or Artificial Opening Endoscopic (ICD-10-PCS; principal; 2019-11-22 07:35)
DX: N13.6 Pyonephrosis (principal); E86.0 Dehydration; R73.9 Hyperglycemia, unspecified; I10 Essential (primary) hypertension; N17.9 Acute kidney failure, unspecified; G62.9 Polyneuropathy, unspecified; K59.00 Constipation, unspecified; E66.01 Morbid (severe) obesity due to excess calories; Z68.41 Body mass index [BMI] 40.0-44.9, adult
CPT/HCPCS: 36415; 50432; 71045; 74018; 74176; 74425; 76000; 76942; 80053; 81001; 82360; 82962; 85025; 85610; 85730; 86850; 86900; 86901; 87040; 87086; 93971; 99152; C1729; G0378; J0696; J1100; J1885; J2001; J2250; J2405; J2704

== ENCOUNTER 2019-11-23 22:15 | Inpatient (IN) | payer MEDICAID ==
[~2019-11-23] VITALS: Ht 162.6 cm; Wt 98.0 kg
[~2019-11-23 22:15] MED LIST changes: +AZEL0.054 EACHEYE; +DICL1GEL50 TD; +MIRT1TAB40 PO; -MIRT30TA PO
[2019-11-23 23:27] LABS: Basophils # (auto) 0 10 ^3/uL (0-0.2); Basophils % (auto) 0.5 % (0.0-2.0); Eosinophils # (auto) 0.1 10 ^3/uL (0-0.8); Eosinophils % (auto) 1.1 % (0.0-7.0); Hematocrit 38.9 % (36.0-46.0); Hemoglobin 13.2 g/dL (12.2-16.2); Lymphocytes % (auto) 12.1 % (10.0-50.0); Mean Corpuscular Hemoglobin 30.2 pg (28.0-32.0); Monocytes # (auto) 0.5 10 ^3/uL (0-1.3); Monocytes % (auto) 5.7 % (0.0-12.0); Neutrophils # (auto) 6.9 10 ^3/uL (1.6-8.6); Neutrophils % (auto) 80.6 % (37.0-80.0); Platelet Count (auto) 222 10^3/uL (140-450); Red Blood Cells 4.38 10^6/uL (4.0-5.20); Red Cell Distribution Width 12.9 % (11.8-14.3); White Blood Cell 8.6 10^3/uL (4.4-10.8)
[2019-11-23 23:44] LABS: INR 0.95 (0.9-1.15); Partial Thromboplastin Time 25.9 sec (23.0-31.2)
[2019-11-23 23:47] LABS: Albumin 3.6 g/dL (3.4-5.0); Anion Gap 5 (5-15); Blood Urea Nitrogen 18 mg/dL (7-18); Calcium 8.8 mg/dL (8.5-10.1); Carbon Dioxide 25 mmol/L (21-32); Chloride 109 mmol/L (98-107); Glucose 142 mg/dL (74-106); Potassium 3.2 mmol/L (3.5-5.1); Sodium 139 mmol/L (136-145)
[2019-11-24 00:04] LABS: Alanine Aminotransferase 33 U/L (13-56); Alkaline Phosphatase 79 U/L (45-117); Aspartate Aminotransferase 17 U/L (15-37); BUN/Creatinine Ratio 16.7; Bilirubin, Total 0.5 mg/dL (0.2-1.0); GFR African American 66 mL/min; GFR Non-African American 54 mL/min; Total Protein 6.6 g/dL (6.4-8.2)
[2019-11-24] MEDS ORDERED: SODIUM CHLORIDE 0.9% 1,000 ML IV ONE (00:45)
[2019-11-24] MEDS ORDERED: IOHEXOL 350 MG/ML 100ML IJ ONE (00:49)
[2019-11-24 02:31] LABS: Urine Bacteria NONE SEEN /hpf (None Seen); Urine Blood 3+ /uL (Negative); Urine Mucus FEW (None Seen); Urine Specific Gravity 1.025 (1.001-1.035); Urine WBC 23 /hpf (0 - 5)
[2019-11-24] MEDS ORDERED: DOXYCYCLINE 100MG/250ML 250 ML IV ONE (03:15)
[2019-11-24] MEDS ORDERED: DexAMETHasone SOD PHOS 10MG/1ML VIAL INJ IV ONE (03:15)
[2019-11-24] MEDS ORDERED: DOCUSATE SOD 100 MG CAP PO PRN (04:30)
[2019-11-24] MEDS ORDERED: ACETAMINOPHEN 500 MG TAB PO PRN (04:30)
[2019-11-24] MEDS ORDERED: ONDANSETRON HCL 4 MG/2 ML VIAL IV PRN (04:30)
[2019-11-24] MEDS ORDERED: cefTRIAXone 1GM/50ML D5W 50 ML IV SCH (05:00)
[2019-11-24] MEDS ORDERED: ALBUTEROL SULF HFA 90MCG INH 200DOSE IN SCH (06:00)
[2019-11-24] MEDS ORDERED: ASCORBIC ACID 1,000 MG TAB PO SCH (10:00)
[2019-11-24] MEDS ORDERED: ENOXAPARIN SOD 40 MG/0.4 ML SYRINGE SC SCH (10:00)
[2019-11-24] MEDS ORDERED: ZINC SULFATE 220mg CAP or TAB PO SCH (10:00)
[2019-11-24] MEDS: HYDROcodone-ACET 5/325MG TAB PO PRN ×2 (10:37→16:31)
[2019-11-24] MEDS ORDERED: levoFLOXacin 500 MG TAB PO SCH (12:15)
[2019-11-24] MEDS ORDERED: FUROSEMIDE 20 MG/2 ML VIAL IV ONE (13:00)
[2019-11-24 14:11] VITALS: BP 157/65
[2019-11-24] MEDS ORDERED: LEVO500T21 PO (17:29)
[2019-11-24 17:42] VITALS: BP 128/52
[2019-11-24] MEDS ORDERED: HYDR-4833 PO (17:52)
[2019-11-24] MEDS ORDERED: DOXYCYCLINE 100 MG TAB/CAP PO SCH (22:00)
== END 2019-11-24 18:42 | disposition home health service (06) | DRG 139 ==
LOC: ER 22:16 → OVERFLOW 22:17 → WEST WING 11-24 13:57
PROVIDERS: ADMIT Hospitalist; ATTEND Hospitalist
DX: J18.9 Pneumonia, unspecified organism (principal); E87.70 Fluid overload, unspecified; I10 Essential (primary) hypertension; E66.9 Obesity, unspecified; J81.1 Chronic pulmonary edema; J90 Pleural effusion, not elsewhere classified; N39.0 Urinary tract infection, site not specified; N20.0 Calculus of kidney; Z20.828 Contact with and (suspected) exposure to other viral communicable diseases; J98.11 Atelectasis; Z68.33 Body mass index [BMI] 33.0-33.9, adult; Z82.49 Family history of ischemic heart disease and other diseases of the circulatory system; Z87.440 Personal history of urinary (tract) infections; Z87.442 Personal history of urinary calculi; Z98.51 Tubal ligation status; Z88.5 Allergy status to narcotic agent; Z88.8 Allergy status to other drugs, medicaments and biological substances
CPT/HCPCS: 36415; 71045; 71275; 80053; 81001; 83735; 83880; 84484; 85025; 85379; 85610; 85730; 87040; 87070; 87081; 87804; 87880; 93005; 93970; 96361; 96365; 96367; 96375; 99291; G0378; J0696; J1100; J3490

== ENCOUNTER 2020-08-03 15:04 | Emergency (ER) | payer OTHER, MEDICAID ==
[~2020-08-03] VITALS: Ht 162.6 cm; Wt 93.0 kg
[~2020-08-03 15:04] MED LIST changes: -LEVO500T21 PO; +LEVO500T31 PO
[2020-08-03] MEDS ORDERED: ONDANSETRON HCL 4 MG/2 ML VIAL IV ONE (15:45)
[2020-08-03] MEDS ORDERED: SODIUM CHLORIDE 0.9% 1,000 ML IV ONE (15:45)
[2020-08-03] MEDS ORDERED: HYDROmorphone HCL 2 MG/ML VL IV ONE (15:45)
[2020-08-03 15:49] VITALS: BP 134/53
[2020-08-03 16:03] LABS: Basophils # (auto) 0.1 10 ^3/uL (0-0.2); Basophils % (auto) 0.7 % (0.0-2.0); Eosinophils # (auto) 0.1 10 ^3/uL (0-0.8); Eosinophils % (auto) 1.5 % (0.0-7.0); Hematocrit 43.4 % (36.0-46.0); Hemoglobin 15.1 g/dL (12.2-16.2); Lymphocytes % (auto) 24.1 % (10.0-50.0); Mean Corpuscular Hemoglobin 31.2 pg (28.0-32.0); Mean Corpuscular Hgb Conc. 34.9 g/dL (32.0-36.0); Mean Corpuscular Volume 89.4 fL (80.0-100.0); Monocytes # (auto) 0.5 10 ^3/uL (0-1.3); Monocytes % (auto) 5.7 % (0.0-12.0); Neutrophils # (auto) 5.8 10 ^3/uL (1.6-8.6); Nucleated Red Blood Cells % 0.1 %; Platelet Count (auto) 263 10^3/uL (140-450); Red Blood Cells 4.85 10^6/uL (4.0-5.20); White Blood Cell 8.5 10^3/uL (4.4-10.8)
[2020-08-03 16:06] LABS: Urine Bacteria FEW /hpf (None Seen); Urine Blood Negative /uL (Negative); Urine Specific Gravity 1.017 (1.001-1.035); Urine WBC 5 /hpf (0 - 5)
[2020-08-03 16:18] LABS: Albumin 4.2 g/dL (3.4-5.0); Calcium 8.8 mg/dL (8.5-10.1); Potassium 3.8 mmol/L (3.5-5.1)
[2020-08-03 16:22] LABS: BUN/Creatinine Ratio 17.4; Bilirubin, Total 0.4 mg/dL (0.2-1.0); Total Protein 7.4 g/dL (6.4-8.2)
== END 2020-08-03 17:25 | disposition home or self-care (01) ==
LOC: ER 15:04
DX: N20.0 Calculus of kidney (principal); N39.0 Urinary tract infection, site not specified; I10 Essential (primary) hypertension; Z98.51 Tubal ligation status; Z88.6 Allergy status to analgesic agent
CPT/HCPCS: 36415; 74176; 80053; 81001; 85025; 96361; 96374; 96375; 99284; J1170; J2405; J7030

== ENCOUNTER 2020-08-08 15:32 | Emergency (ER) | payer OTHER, MEDICAID ==
[~2020-08-08] VITALS: Ht 162.6 cm; Wt 93.0 kg
[~2020-08-08 15:32] MED LIST changes: -LISI-648 PO; +LISI-716 PO
[2020-08-08 15:35] VITALS: BP 137/68
== END 2020-08-08 18:59 | disposition left against medical advice (07) ==
LOC: ER 15:32
DX: Z76.0 Encounter for issue of repeat prescription (principal); Z53.21 Procedure and treatment not carried out due to patient leaving prior to being seen by health care provider

== ENCOUNTER 2020-08-31 11:40 | Emergency (ER) | payer OTHER, MEDICAID ==
[~2020-08-31] VITALS: Ht 162.6 cm; Wt 96.6 kg
[2020-08-31 12:10] LABS: Basophils # (auto) 0.1 10 ^3/uL (0-0.2); Basophils % (auto) 1.1 % (0.0-2.0); Eosinophils # (auto) 0.1 10 ^3/uL (0-0.8); Hematocrit 41.2 % (36.0-46.0); Hemoglobin 14.2 g/dL (12.2-16.2); Lymphocytes % (auto) 19.8 % (10.0-50.0); Mean Corpuscular Hemoglobin 30.8 pg (28.0-32.0); Mean Corpuscular Hgb Conc. 34.6 g/dL (32.0-36.0); Monocytes # (auto) 0.3 10 ^3/uL (0-1.3); Monocytes % (auto) 6.5 % (0.0-12.0); Neutrophils # (auto) 3.4 10 ^3/uL (1.6-8.6); Neutrophils % (auto) 69.6 % (37.0-80.0); Nucleated Red Blood Cells % 0.1 %; Platelet Count (auto) 216 10^3/uL (140-450); Red Blood Cells 4.62 10^6/uL (4.0-5.20); Red Cell Distribution Width 12.7 % (11.8-14.3); White Blood Cell 4.9 10^3/uL (4.4-10.8)
[2020-08-31 12:27] LABS: Albumin 3.7 g/dL (3.4-5.0); Calcium 8.5 mg/dL (8.5-10.1); Potassium 4.6 mmol/L (3.5-5.1)
[2020-08-31 12:29] LABS: Urine Bacteria FEW /hpf (None Seen); Urine Blood Negative /uL (Negative); Urine Specific Gravity 1.016 (1.001-1.035); Urine WBC 2 /hpf (0 - 5)
[2020-08-31 12:30] LABS: BUN/Creatinine Ratio 21.3; Bilirubin, Total 0.5 mg/dL (0.2-1.0); Total Protein 6.5 g/dL (6.4-8.2)
[2020-08-31] MEDS ORDERED: KETOROLAC TROMETH 30 MG/ML 1ML VIAL IV ONE (15:00)
[2020-08-31] MEDS ORDERED: ONDANSETRON HCL 4 MG/2 ML VIAL IV ONE ×2 (15:00→16:30)
[2020-08-31 16:00] VITALS: BP 150/65
[2020-08-31] MEDS ORDERED: SODIUM CHLORIDE 0.9% 1,000 ML IV ONE (16:30)
[2020-08-31] MEDS ORDERED: HYDROmorphone HCL 2 MG/ML VL IV ONE (16:30)
== END 2020-08-31 19:19 | disposition home or self-care (01) ==
LOC: ER 11:40
DX: N20.0 Calculus of kidney (principal); N39.0 Urinary tract infection, site not specified; I10 Essential (primary) hypertension; Z90.49 Acquired absence of other specified parts of digestive tract; Z88.5 Allergy status to narcotic agent; Z88.8 Allergy status to other drugs, medicaments and biological substances; Z79.2 Long term (current) use of antibiotics; Z79.899 Other long term (current) drug therapy
CPT/HCPCS: 36415; 74176; 80053; 81001; 82962; 85025; 96361; 96374; 96375; 96376; 99284; J1170; J1885; J2405; J7030

== ENCOUNTER → 2021-03-02 | Day surgery (SDC) | payer OTHER, MEDICAID ==
[~2021-03-02] VITALS: Ht 162.6 cm; Wt 83.9 kg
[~2021-03-02] MED LIST changes: +ASPI1TAB20 PO; +HYDROmorphone HCL 2 MG/ML VL ONE; +IOHEXOL 300 MG/ML 100ML BOTTLE IJ ONE; +LIDOCAINE 2% (LOCAL ANESTH.) PF 5ml SDV ONE; +MIDAZOLAM HCL 2MG/2ML 2ml VIAL (1mg/ml) ONE; +ONDANSETRON HCL 4 MG/2 ML VIAL IV PRN; +ONDANSETRON HCL 4 MG/2 ML VIAL ONE; +PROPOFOL 10 MG/ML 20 ML IV ONE; +ceFAZolin 1GM/50ML 100 ML IV ONE; +ePHEDrine SULFATE 50 MG/ML AMP ONE
[2021-03-02] MEDS: HYDROmorphone HCL 2 MG/ML VL IV PRN ×2 (09:00→09:10)
[2021-03-02 09:25] VITALS: BP 123/61
== END | disposition home or self-care (01) ==
LOC: SUR 06:12
PROVIDERS: ATTEND Urology
DX: N20.0 Calculus of kidney (principal); I10 Essential (primary) hypertension; E11.9 Type 2 diabetes mellitus without complications; E78.5 Hyperlipidemia, unspecified; F32.9 Major depressive disorder, single episode, unspecified; Z88.6 Allergy status to analgesic agent; Z85.41 Personal history of malignant neoplasm of cervix uteri; Z98.51 Tubal ligation status; Z82.49 Family history of ischemic heart disease and other diseases of the circulatory system; Z80.8 Family history of malignant neoplasm of other organs or systems; Z90.49 Acquired absence of other specified parts of digestive tract; Z98.890 Other specified postprocedural states; Z79.899 Other long term (current) drug therapy; Z20.822 Contact with and (suspected) exposure to COVID-19
CPT/HCPCS: 50590; 82962; J0690; J1170; J2001; J2250; J2405; J2704; Q9967; U0003

== ENCOUNTER → 2021-06-08 | Day surgery (SDC) | payer OTHER, MEDICAID ==
[~2021-06-08] VITALS: Ht 162.6 cm; Wt 81.6 kg
[~2021-06-08] MED LIST changes: +ACCU-CHEK COMFORT CURVE STRIP VI ONE; +HYDROmorphone HCL 2 MG/ML VL IV PRN; -IOHEXOL 300 MG/ML 100ML BOTTLE IJ ONE; +KETAMINE 50mg/ML 10ml Vial (500mg/10ml) IV ONE; +LABETALOL HCL 5 MG/ML 4ML SYRINGE IV PRN; -LIDOCAINE 2% (LOCAL ANESTH.) PF 5ml SDV ONE; +MIDAZOLAM HCL 2MG/2ML 2ml VIAL (1mg/ml) IV PRN; +MORPHINE SULFATE 4 MG/ML SYR/VIAL IV PRN; -ceFAZolin 1GM/50ML 100 ML IV ONE; -ePHEDrine SULFATE 50 MG/ML AMP ONE; +fentaNYL CITRATE 100 MCG/2 ML VL ONE
[2021-06-08 14:30] VITALS: BP 132/60
== END | disposition home or self-care (01) ==
LOC: SUR 08:42
PROVIDERS: ATTEND Urology
DX: N20.0 Calculus of kidney (principal); I10 Essential (primary) hypertension; E11.40 Type 2 diabetes mellitus with diabetic neuropathy, unspecified; J45.909 Unspecified asthma, uncomplicated; E78.5 Hyperlipidemia, unspecified; Z90.49 Acquired absence of other specified parts of digestive tract; Z98.51 Tubal ligation status; Z98.890 Other specified postprocedural states; Z79.899 Other long term (current) drug therapy; Z88.6 Allergy status to analgesic agent; Z20.822 Contact with and (suspected) exposure to COVID-19; Z85.41 Personal history of malignant neoplasm of cervix uteri; Z82.49 Family history of ischemic heart disease and other diseases of the circulatory system; Z80.8 Family history of malignant neoplasm of other organs or systems
CPT/HCPCS: 50590; 82962; J1170; J2250; J2405; J2704; J3010; U0003

== ENCOUNTER 2021-09-11 09:40 | Emergency (ER) | payer OTHER, MEDICAID ==
[~2021-09-11] VITALS: Ht 162.6 cm; Wt 80.7 kg
[~2021-09-11 09:40] MED LIST changes: -ACCU-CHEK COMFORT CURVE STRIP VI ONE; -HYDROmorphone HCL 2 MG/ML VL IV PRN; -HYDROmorphone HCL 2 MG/ML VL ONE; -KETAMINE 50mg/ML 10ml Vial (500mg/10ml) IV ONE; -LABETALOL HCL 5 MG/ML 4ML SYRINGE IV PRN; -MIDAZOLAM HCL 2MG/2ML 2ml VIAL (1mg/ml) IV PRN; -MIDAZOLAM HCL 2MG/2ML 2ml VIAL (1mg/ml) ONE; -MORPHINE SULFATE 4 MG/ML SYR/VIAL IV PRN; -ONDANSETRON HCL 4 MG/2 ML VIAL IV PRN; -ONDANSETRON HCL 4 MG/2 ML VIAL ONE; -PROPOFOL 10 MG/ML 20 ML IV ONE; -fentaNYL CITRATE 100 MCG/2 ML VL ONE
[2021-09-11] MEDS ORDERED: HYDR-4902 PO (09:54)
[2021-09-11 13:06] VITALS: BP 135/49
== END 2021-09-11 13:10 | disposition home or self-care (01) ==
LOC: ER 09:40
DX: N20.0 Calculus of kidney (principal); E11.9 Type 2 diabetes mellitus without complications; I10 Essential (primary) hypertension; Z98.51 Tubal ligation status; Z88.6 Allergy status to analgesic agent

== ENCOUNTER 2021-11-02 08:40 | Day surgery (SDC) | payer OTHER, MEDICAID ==
[~2021-11-02] VITALS: Ht 162.6 cm; Wt 81.6 kg
[~2021-11-02 08:40] MED LIST changes: -ASPI1TAB20 PO; -ATOR40TA52 PO; -DICL1GEL50 TD; -GABA300C10 PO; -HYDR-4833 PO; -LEVO500T31 PO
[2021-11-02] MEDS ORDERED: CIPROFLOXACIN 400MG/200ML 200 ML IV ONE (09:32)
[2021-11-02] MEDS ORDERED: MIDAZOLAM HCL 2MG/2ML 2ml VIAL (1mg/ml) ONE (11:34)
[2021-11-02] MEDS ORDERED: fentaNYL CITRATE 100 MCG/2 ML VL ONE (11:34)
[2021-11-02] MEDS ORDERED: DexAMETHasone SOD PHOS 10MG/1ML VIAL INJ ONE (11:51)
[2021-11-02] MEDS ORDERED: PROPOFOL 10 MG/ML 20 ML IV ONE (11:59)
[2021-11-02] MEDS ORDERED: KETOROLAC TROMETH 30 MG/ML 1ML VIAL IV ONE (12:15)
[2021-11-02] MEDS ORDERED: fentaNYL CITRATE 100 MCG/2 ML VL IV PRN (12:15)
[2021-11-02] MEDS ORDERED: ACCU-CHEK COMFORT CURVE STRIP VI ONE (12:15)
[2021-11-02] MEDS ORDERED: MIDAZOLAM HCL 2MG/2ML 2ml VIAL (1mg/ml) IV PRN (12:15)
[2021-11-02] MEDS ORDERED: LABETALOL HCL 5 MG/ML 4ML SYRINGE IV PRN (12:15)
[2021-11-02] MEDS ORDERED: ePHEDrine SULFATE 50 MG/ML AMP IV PRN (12:15)
[2021-11-02] MEDS ORDERED: METOCLOPRAMIDE HCL 5MG/ml INJ 2ml VIAL IV PRN (12:15)
[2021-11-02] MEDS ORDERED: ONDANSETRON HCL 4 MG/2 ML VIAL IV PRN (12:15)
[2021-11-02 13:20] VITALS: BP 120/58
== END 2021-11-02 13:46 | disposition home or self-care (01) ==
LOC: SUR 08:40
PROVIDERS: ATTEND Urology
DX: N20.0 Calculus of kidney (principal); I10 Essential (primary) hypertension; E11.9 Type 2 diabetes mellitus without complications; Z90.49 Acquired absence of other specified parts of digestive tract; Z98.51 Tubal ligation status; Z98.890 Other specified postprocedural states; Z79.899 Other long term (current) drug therapy; Z88.6 Allergy status to analgesic agent; Z91.040 Latex allergy status; Z20.822 Contact with and (suspected) exposure to COVID-19; Z80.8 Family history of malignant neoplasm of other organs or systems; Z82.49 Family history of ischemic heart disease and other diseases of the circulatory system; Z85.858 Personal history of malignant neoplasm of other endocrine glands
CPT/HCPCS: 50590; 82962; J0744; J1100; J1885; J2250; J2704; J2765; J3010; U0003

== ENCOUNTER 2022-08-04 03:05 | Emergency (ER) | payer OTHER, MEDICAID ==
[~2022-08-04] VITALS: Ht 162.6 cm; Wt 71.9 kg
[2022-08-04 04:07] LABS: Urine Bacteria FEW /hpf (None Seen); Urine Blood Negative /uL (Negative); Urine Specific Gravity 1.006 (1.001-1.035); Urine WBC <1 /hpf (0 - 5)
[2022-08-04 04:45] LABS: Basophils # (auto) 0.1 10 ^3/uL (0-0.2); Basophils % (auto) 0.5 % (0.0-2.0); Eosinophils # (auto) 0.2 10 ^3/uL (0-0.8); Eosinophils % (auto) 1.5 % (0.0-7.0); Hematocrit 43.5 % (36.0-46.0); Hemoglobin 15.2 g/dL (12.2-16.2); Lymphocytes # (auto) 1.3 10 ^3/uL (0.4-5.4); Lymphocytes % (auto) 12.9 % (10.0-50.0); Mean Corpuscular Hemoglobin 30.7 pg (28.0-32.0); Mean Corpuscular Hgb Conc. 34.9 g/dL (32.0-36.0); Mean Corpuscular Volume 88.1 fL (80.0-100.0); Monocytes # (auto) 0.5 10 ^3/uL (0-1.3); Monocytes % (auto) 4.4 % (0.0-12.0); Neutrophils # (auto) 8.4 10 ^3/uL (1.6-8.6); Neutrophils % (auto) 80.7 % (37.0-80.0); Nucleated Red Blood Cells % 0.2 %; Red Blood Cells 4.94 10^6/uL (4.0-5.20); White Blood Cell 10.4 10^3/uL (4.4-10.8)
[2022-08-04 04:50] LABS: Potassium 3.5 mmol/L (3.5-5.1)
[2022-08-04 04:57] LABS: Albumin 4.2 g/dL (3.4-5.0); BUN/Creatinine Ratio 19.4 (10.0-20.0); Bilirubin, Total 0.7 mg/dL (0.2-1.0); Total Protein 7.4 g/dL (6.4-8.2)
[2022-08-04] MEDS ORDERED: KETOROLAC TROMETH 30 MG/ML 1ML VIAL IM ONE (06:45)
[2022-08-04 07:38] VITALS: BP 136/75
== END 2022-08-04 07:47 | disposition home or self-care (01) ==
LOC: ER 03:05
DX: R10.12 Left upper quadrant pain (principal); R10.11 Right upper quadrant pain; E11.22 Type 2 diabetes mellitus with diabetic chronic kidney disease; N18.2 Chronic kidney disease, stage 2 (mild); E78.5 Hyperlipidemia, unspecified; Z87.442 Personal history of urinary calculi; Z98.51 Tubal ligation status
CPT/HCPCS: 36415; 74176; 80053; 81001; 83690; 85025